=== PATIENT | female | born 1995 | race Native Hawaiian/Other Pacific Islander ===

== ENCOUNTER 2018-01-12 21:15 | Emergency (ER) | payer OTHER ==
--- NOTE | 2018-01-12 21:28 | ED Physician Documentation ---
General Adult - HISTORIAN Historian: patient - HPI Stated Complaint: sore throat, L ear pain Chief Complaint: General Adult Onset: days ago (7) Timing: still present Severity: moderate Further Comments: yes (Pt is a 22 yo female with sore throat and l ear pain. Sx started about a week ago. Pt has felt feverish off and on.) - ROS CONST: chills EYES/ENT: sore throat CVS/RESP: none GI/: none MS/SKIN/LYMPH: none - PAST HX Past History: none Allergies/Adverse Reactions: Allergies Allergy/AdvReac Type Severity Reaction Status Date / Time No Known Allergies Allergy Verified 01/12/18 21:33 Home Medications: Ambulatory Orders Medication Instructions Recorded Cephalexin [Keflex] 500 mg PO Q8H #30 capsule 01/12/18 - SOCIAL HX Smoking History: non-smoker - FAMILY HX Family History: No - VITAL SIGNS Vital Signs: Vital Signs Temp Pulse Resp BP Pulse Ox 131/79 08/17/16 05:40 - REVIEWED ASSESSMENTS Nursing Assessment Reviewed: Yes Vitals Reviewed: Yes Progress - Progress Progress: Rx Keflex 500 mg po q 8 h x 10 days, 1st dose in ER. General Adult Physical Exam - PHYSICAL EXAM GENERAL APPEARANCE: mild distress EENT: pharyngeal erythema NECK: normal inspection, supple, lymphadenopathy (L) RESPIRATORY: no resp distress, chest non-tender, breath sounds normal CVS: reg rate & rhythm, heart sounds normal ABDOMEN: soft, no organomegaly, normal bowel sounds BACK: normal inspection SKIN: warm/dry, normal color EXTREMITIES: non-tender, normal range of motion NEURO: oriented X3, motor nml, sensation nml Discharge Clincal Impression: Pharyngitis Qualifiers: Pharyngitis/tonsillitis etiology: unspecified etiology Qualified Code(s): J02.9 - Acute pharyngitis, unspecified Prescriptions: Cephalexin [Keflex] 500 mg PO Q8H #30 capsule Referrals: Primary Doctor,No [Primary Care Provider] - Condition: Good Disposition: 01 HOME, SELF-CARE Decision to Admit: NO Decision Time: 21:40
[2018-01-12 21:33] VITALS: BP 128/72
[2018-01-12] MEDS ORDERED: CEPHALEXIN 250 MG CAPSULE PO ONE (21:38)
== END 2018-01-12 21:50 | disposition home or self-care (01) ==
LOC: ED 21:15
DX: J02.9 Acute pharyngitis, unspecified (principal)
CPT/HCPCS: 87070; 87880; 99283

== ENCOUNTER 2018-02-09 11:11 | Emergency (ER) | payer OTHER ==
[2018-02-09 11:29] VITALS: BP 129/92
--- NOTE | 2018-02-09 11:45 | ED Physician Documentation ---
General Adult - HISTORIAN Historian: patient - HPI Stated Complaint: R wrist pain Chief Complaint: Upper Extremity Problem (right wrist) Additional Information: Thursday developed some pain in the right wrist area. No known precipitating cause noted. Worse pain with picking something up. Onset: days ago Timing: still present Modifying Factors: lifting and suppination amkes the pain worse. Context: no precipitating factor Location: right forearm Further Comments: no - ROS CONST: no problems - PAST HX Past History: none Other History: none Surgeries/Procedures: none Allergies/Adverse Reactions: Allergies Allergy/AdvReac Type Severity Reaction Status Date / Time No Known Allergies Allergy Verified 02/09/18 11:28 Home Medications: Ambulatory Orders Medication Instructions Recorded NK [NK] 02/09/18 - SOCIAL HX Smoking History: non-smoker Alcohol Use: occasionally Drug Use: none - FAMILY HX Family History: No - VITAL SIGNS Vital Signs: Vital Signs Temp Pulse Resp BP Pulse Ox 97.5 F L 76 16 129/92 99 02/09/18 11:20 02/09/18 11:20 02/09/18 11:20 02/09/18 11:20 02/09/18 11:20 - REVIEWED ASSESSMENTS Nursing Assessment Reviewed: Yes Vitals Reviewed: Yes General Adult Physical Exam - PHYSICAL EXAM GENERAL APPEARANCE: no distress RESPIRATORY: no resp distress, chest non-tender, breath sounds normal. No: wheezes, rales, rhonchi CVS: reg rate & rhythm, heart sounds normal, equal pulses, no murmur, no gallop EXTREMITIES: normal range of motion, no evidence of injury, no edema, tenderness (over lateral proximal forearm, no bony abnl noted, skin normal) NEURO: oriented X3, CN's nml as tested, motor nml, sensation nml, mood/affect nml, cognition normal Discharge Clincal Impression: Lateral epicondylitis of right elbow Referrals: Primary Doctor,No [Primary Care Provider] - 2 Days Additional Instructions: Start taking Aleve 2 tablets with food twice a day. Get a Tennis elbow splint and start wearing it. Try to avoid activity that aggravates the pain. If not improving in two weeks to follow-up with your primary care provider . Condition: Stable Disposition: 01 HOME, SELF-CARE Decision to Admit: NO Date of Decison to Admit: 02/09/18 Decision Time: 11:54
== END 2018-02-09 12:00 | disposition home or self-care (01) ==
LOC: ED 11:11
DX: M77.11 Lateral epicondylitis, right elbow (principal)
CPT/HCPCS: 99282